=== PATIENT | male | born 1960 | race Caucasian/White ===

== ENCOUNTER 2018-06-08 01:01 | Outpatient (CLI) | payer OTHER, SELFPAY ==
[2018-06-08 12:04] LABS: HCT 41.9 % (40.0-50.0); HGB 14.3 g/dL (13.5-17.5); Mean Corp. HGB Concentration 34.1 g/dL (32.0-36.0); Mean Corpuscular Hemoglobin 30.9 pg (27.0-33.0); Mean Corpuscular Volume 90.5 fL (80-95); Mean Platelet Volume 9.9 fL (8.0-11.0); Platelet Count 242 x1000/uL (130-400); RBC 4.63 m/cumm (4.50-6.00); RBC Distribution Width 12.5 % (11.8-14.1); White Blood Cell Count 5.63 k/cumm (4.4-10.8)
[2018-06-08 12:25] LABS: Hemoglobin A1C 7.9 % (4.5-6.2)
[2018-06-08 12:29] LABS: ALT 45 U/L (12-78); AST 25 U/L (15-37); Albumin 4.2 g/dL (3.4-5.0); Alkaline Phosphatase 95 U/L (46-116); Anion Gap 11.3 mmol/L (3-11); BUN 14 mg/dL (7-18); Bilirubin, Total 0.3 mg/dL (0.2-1.0); CO2 26.7 mmol/L (21.0-32.0); Calcium 9.5 mg/dL (8.5-10.1); Chloride 100 mmol/L (98-107); Cholesterol 135 mg/dL (50-200); Glucose 253 mg/dL (70-100); HDL Cholesterol 39 mg/dL (40-60); LDL CHOLESTEROL 56 mg/dL (<100); Sodium 138 mmol/L (136-145); Total Protein 7.8 g/dL (6.4-8.2); Triglyceride 352 mg/dL (30-150)
[2018-06-09 10:34] LABS: PSA, Screening 0.8 ng/ml (0-3.5)
== END 2018-06-08 01:21 ==
PROVIDERS: PCP Family Medicine; Visit Provider Family Medicine
DX: E11.9 Type 2 diabetes mellitus without complications (principal); Z12.5 Encounter for screening for malignant neoplasm of prostate
CPT/HCPCS: 36415; 80053; 80061; 83721; 84153; 85027; 83036

== ENCOUNTER 2020-07-11 09:05 | Outpatient (REF) | payer BC, SELFPAY ==
[2020-07-11 13:23] LABS: CREATININE 0.8 mg/dL (0.70-1.30); Calculated LDL 57 mg/dL (<100); Cholesterol 110 mg/dL (<200); HDL Cholesterol 32 mg/dL (40-60); Potassium 4.7 mmol/L (3.5-5.1); Triglyceride 109 mg/dL (<150)
== END 2020-07-11 09:06 | disposition home or self-care (01) ==
LOC: LBN 09:05
PROVIDERS: PCP Family Medicine; Visit Provider Family Medicine
DX: I10 Essential (primary) hypertension (principal); E78.5 Hyperlipidemia, unspecified
CPT/HCPCS: 80061; 82565; 84132

== ENCOUNTER 2020-10-01 16:54 | Outpatient (REF) | payer BC, SELFPAY ==
[2020-10-01 17:52] LABS: Hemoglobin A1C 6.6 % (<5.7)
== END 2020-10-01 16:55 | disposition home or self-care (01) ==
LOC: LBN 16:54
PROVIDERS: PCP Nurse Practitioner Family; Visit Provider Nurse Practitioner Family
DX: E11.9 Type 2 diabetes mellitus without complications (principal); R35.1 Nocturia
CPT/HCPCS: 83036; 84154

== ENCOUNTER 2021-04-07 09:58 | Outpatient (CLI) | payer BC, SELFPAY ==
--- NOTE | 2021-04-07 11:25 | DI.RAD_ITS ---
Exam(s) XR SHOULDER LT COMPLETE 2+V EXAM: XR SHOULDER LT COMPLETE 2+V CLINICAL HISTORY: continued shoulder pain M25.512 PAIN LEFT SHOULDER. TECHNIQUE: 2D digital imaging was performed of the left shoulder. Five images were obtained. AP, G rashey, Y-view and axillary views were obtained. COMPARISON: No exams were available for comparison FINDINGS: BONES: No acute fracture is present. No bony destructive lesion is seen. There are calcifications adj acent to the greater tuberosity consistent with calcific tendinitis. JOINTS: No dislocation present. Mild degenerative changes are seen at the acromioclavicular joint. SOFT TISSUE: Normal. IMPRESSION: Degenerative changes in the left shoulder. DATA REPOSITORY: RADIATION DOSE DELIVERED:
== END 2021-04-07 10:18 ==
LOC: DI 10:01
PROVIDERS: PCP Nurse Practitioner Family; Visit Provider Nurse Practitioner Family
DX: M25.512 Pain in left shoulder (principal); M19.012 Primary osteoarthritis, left shoulder
CPT/HCPCS: 73030

== ENCOUNTER 2021-05-26 01:18 | Outpatient (CLI) | payer BC, SELFPAY ==
--- NOTE | 2021-05-26 08:08 | DI.MRI_ITS ---
Exam(s) MR UPPER JOINT LT WO EXAM: MR UPPER JOINT LT WO CLINICAL HISTORY: pain,weakness,TRAUMATIC TEAR LT ROTATOR CUFF,S46.012A. TECHNIQUE: Multiplanar multisequence MRI was performed. COMPARISON: No exams were available for comparison FINDINGS: The examination is limited due to patient motion artifact. BONES: There is no fracture or contusion pattern. JOINTS: Mild degenerative changes are seen at the acromioclavicular joint. The glenohumeral joint is normal. TENDONS: Supraspinatus: There is a focus of hyperintense signal seen in the supraspinatus tendon at its insert ion site consistent with a partial tear. Infraspinatus: Unremarkable. Subscapularis: There is hyperintense signal and thickening of the subscapularis tendon at its inserti on consistent with a partial tear. Teres Minor: Unremarkable. Biceps and Dousman: Tendinosis of the biceps tendon is noted. MUSCLES: Unremarkable. GLENOID LABRUM: There is hyperintense signal seen in the superior labrum suspicious for tear and/or d egeneration. SOFT TISSUES: Unremarkable. LIGAMENTS: Unremarkable. OTHER: Subacromial and subdeltoid bursae are unremarkable. IMPRESSION: 1. Examination limited by patient motion artifact. 2. Partial tears involving the subscapularis and supraspinatus tendons. 3. Tendinosis of the biceps tendon. 4. Hyperintense signal in superior labrum suspicious for tear. Degeneration cannot be excluded. DATA REPOSITORY:
== END 2021-05-26 01:38 ==
LOC: DI 01:18
PROVIDERS: PCP Nurse Practitioner Family; Visit Provider Student in an Organized Health Care Education/Training Program
DX: M25.512 Pain in left shoulder (principal); S46.012A Strain of muscle(s) and tendon(s) of the rotator cuff of left shoulder, initial encounter; M19.012 Primary osteoarthritis, left shoulder; M75.22 Bicipital tendinitis, left shoulder
CPT/HCPCS: 73221

== ENCOUNTER 2021-08-10 13:11 | Emergency (ER) | payer BC, SELFPAY ==
[2021-08-10 13:29] VITALS: BP 155/86; PULSE 91; RESP 16; TEMP 37.6; O2SAT 96
--- NOTE | 2021-08-10 14:22 | ED.GENADUL_ITS ---
Discharge Plan Disposition Patient Disposition: HOME Condition: Stable Discharge Details Clinical Impression: Splinter in skin Primary Care Provider: Jemal Hannah ED Provider: Pal Nelson Home Meds and New Rx's Prescriptions: Continued (DME) lancets [Accu-Chek Softclix Lancets] Misc See Rx Instructions .Route Qty: 200 0RF Rx Instructions: Daily (DME) blood-glucose meter [Contour Next Meter] Misc See Rx Instructions .Route Qty: 1 0RF Rx Instructions: Daily (DME) Contour Next Test Strips Strip See Rx Instructions .Route Qty: 100 3RF Rx Instructions: Daily trazodone 50 mg tablet 50 mg PO QHS PRN (Reason: sleep) Qty: 90 3RF rosuvastatin 20 mg tablet 20 mg PO DAILY Qty: 90 3RF diclofenac sodium 75 mg tablet,delayed release (DR/EC) 75 mg PO BID Qty: 60 3RF Trulicity 3 mg/0.5 mL pen injector 3 mg subcut QWEEK Qty: 2 3RF Discharge Instructions Instructions: Soft Tissue Foreign Body (ED) Additional Instructions: Unfortunately I was unable to remove the soft tissue foreign body. Warm soaks and/or compresses every 2 hours for 20 minutes. Ljsm-adj-[id number] wicking salves may be beneficial as well. Please watch for new or worsening symptoms and return to the ER for any concerns. Lastly, I have given you the name and number of our local surgical team if you decide you would like to be more aggressive and have them attempt to remove this. Referrals: Liset Gresham MD [ [facility] STAFF PHYSICIAN] - Discharge Data Discharge Date/Time-TO BE ENTERED AT DEPARTURE: 08/10/21 15:21 Medical Decision Making 61-year-old male, tetanus status up-to-date, report splinter, wooden foreign body in his right buttocks. He initially thought the wound was pressure-treated but on second thought he believes it looked aged and does not think it was pressure-treated. His was able to remove some of the splinter but there is concerned that the splinter broke and there is still a subcutaneous foreign body. Given the foreign body is wooden, while pivoting on a picnic bench, x-ray likely of little value. Discussed options. Conservative measures of warm compresses, soaks, wicking salves, etc. versus more aggressive treatment, exploratory foreign body removal. I did make it very clear that I would not be exploring extremely aggressively or deeply here in the ER and that this may require outpatient surgical follow-up. They would like to move forward with potential foreign body retrieval. Please see procedural note. 1/2 cm laceration was made just superior of the puncture wound, using splinter forceps I attempted to retrieve the potential foreign body but was unsuccessful. Patient tolerated this well. Discussed placing a single suture in the incision versus leaving it open for potential drainage and eventual extraction of foreign body. Patient would prefer to leave the laceration as is, declines sutures. Discussed conservative measures, warm compresses and soaks, viky-gbc-kaygbif wicking salves, and signs of infection. Encouraged to return to the ER for new or worsening symptoms. Given the surgical suite contact information if they would like to proceed with surgical follow-up and extraction of foreign body. Patient and family have no additional questions or concerns and are comfortable with this plan. This documentation was generated using Inform Direct dictation system, please disregard any oddities of phrase or misspellings. Medical Records Medical records reviewed: Yes I reviewed the patient's medical records. HPI General Mode of arrival: ambulatory . Date/Time Provider Initiated Documentation: 08/10/21 13:49 . Limitations to Documentation: no limitations . Information obtained by: patient . History of Present Illness 61 year old M presents to the emergency department with the chief complaint of splinter in buttocks, described as moderate, with intensity rated at 4. Quality is described as aching, and is localized to the buttocks. Patient reports no radiation. Patient started experiencing this hour(s) (1) and it has been constant. improves with No relieving factors improve symptom(s), No exacerbating factors reported . Patient notes no other symptoms.. Patient did receive the following treatments prior to arrival, none Related Data Home Medications Medication Instructions Recorded Confirmed rosuvastatin 20 mg tablet 20 mg PO DAILY #90 tab-cap 01/09/21 08/10/21 blood sugar diagnostic (Contour #100 ea 06/03/21 07/22/21 Next Test Strips) blood-glucose meter (Contour Next #1 ea 06/03/21 07/22/21 Meter) lancets (Accu-Chek Softclix #200 ea 06/03/21 07/22/21 Lancets) diclofenac sodium 75 mg 75 mg PO BID #60 tab-cap 07/08/21 08/10/21 tablet,delayed release trazodone 50 mg tablet 50 mg PO QHS PRN #90 tab 07/22/21 08/10/21 dulaglutide 3 mg/0.5 mL 3 mg (0.5 mL) SUBCUT QWEEK #2 ml 07/27/21 08/10/21 subcutaneous pen injector (Trulicity) Previous Rx's Medication Instructions Recorded rosuvastatin 20 mg tablet 20 mg PO DAILY #90 tab-cap 01/09/21 blood sugar diagnostic (Contour #100 ea 06/03/21 Next Test Strips) blood-glucose meter (Contour Next #1 ea 06/03/21 Meter) lancets (Accu-Chek Softclix #200 ea 06/03/21 Lancets) diclofenac sodium 75 mg 75 mg PO BID #60 tab-cap 07/08/21 tablet,delayed release trazodone 50 mg tablet 50 mg PO QHS PRN #90 tab 07/22/21 dulaglutide 3 mg/0.5 mL 3 mg (0.5 mL) SUBCUT QWEEK #2 ml 07/27/21 subcutaneous pen injector (Trulicity) Allergies Allergy/AdvReac Type Severity Reaction Status Date / Time Penicillins Allergy Intermediate Verified 08/10/21 13:33 General Stated Complaint: Laceration KARRI: 4 Review of Systems Constitutional Constitutional: Denies fever(s) and Denies weakness Musculoskeletal Musculoskeletal: Denies numbness and Denies tingling Integumentary/Breasts Skin/Breast: Denies erythema and Denies rash Neurologic Neurologic: Denies numbness, Denies tingling and Denies weakness PFSH All Active Problems Splinter in skin (Acute) Bursitis of left shoulder (Acute) Tendinitis of long head of biceps brachii of left shoulder (Acute) SLAP lesion of left shoulder (Acute) Traumatic tear of left rotator cuff (Acute ~09/2020) Insomnia (Acute) Anxiety (Chronic) Nocturia (Acute) Low back pain (Acute) DM type 2 (diabetes mellitus, type 2) (Chronic) Hyperlipidemia (Acute) Tubular adenoma of colon (Acute) 2014 Surgical History Colonoscopy - MAC 2014 Social History Smoking/Tobacco Use Status: Never Second Hand Exposure: No Smoking risk assessment performed?: Yes Alcohol Intake: former Drug use: Never Caregiver/Support person: No Household members: none Housing: house Communication Needs: None Do you need help understanding health information?: Never Pets and animals: No Sexually active: Yes Do you think of yourself as: straight/heterosexual Current gender identity: male What is your relationship status?: How often do you talk on the phone with friends or family?: three or more times per week How often do you get together with friends or relatives?: three or more times per week How often do you attend tenriism or anabaptist services?: 1-3 times per year Do you belong to any clubs or organized social groups?: no Panel score (0-1 are the most socially isolated patients): 1 What type of physical activity do you participate in: walking Duration: 45-60 minutes/day Frequency: daily Trinity/Yarsani: Jew Special trinity needs: No Seatbelt use: sometimes Helmet use: Yes Helmet use: always Drive intox or ride w/intox 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 Puncture wound. No active bleeding or obvious foreign body. No surrounding erythema or warmth. The puncture wound appears to go in a superior tract fashion. When I rolled my fingers over the subcutaneous tissue, I do question if I can feel a foreign body half a centimeter superior of the actual puncture wound. Skin General skin exam: no rashes or lesions noted Neuro General: patient alert, patient awake, moves all extremities and no focal motor deficits Sensory Exam: no sensory deficits noted Psych Appearance: grossly normal Mental Status: mental status grossly normal Course Vital Signs Vital signs: Vital Signs Temperature 37.6 C H 08/10/21 13:29 Pulse 91 H 08/10/21 13:29 Respiratory Rate 16 08/10/21 13:29 Blood Pressure 155/86 H 08/10/21 13:29 Pulse Oximetry 96 08/10/21 13:29 Temperature 37.6 C H 08/10/21 13:29 Temperature Source Temporal Artery Scan 08/10/21 13:29 Pulse 91 H 08/10/21 13:29 Respiratory Rate 16 08/10/21 13:29 Respiratory Effort 08/10/21 13:29 Blood Pressure 155/86 H 08/10/21 13:29 Blood Pressure Position Sitting 08/10/21 13:29 Pulse Oximetry 96 08/10/21 13:29 Oxygen Delivery Method Room Air 08/10/21 13:29 Oxygen Flow Rate 0 08/10/21 13:29 Pain Level 3 08/10/21 13:29 Procedures Foreign Body Removal Time Out Performed: yes Site: left and other (Buttocks) Description of foreign body: other (Wooden splinter) Sedation/Analgesia: other (3 cc, local 1% Lidoderm with epi) Technique: manual removal, removal with forceps and incision made to facilitate removal Confirmed by:: other (Unfortunately unsuccessful) Complications: none Post-procedure exam: awake, alert Neurovascular: other (No complications)
== END 2021-08-10 15:21 | disposition home or self-care (01) ==
PROVIDERS: Emergency Provider Physician Assistant; PCP Nurse Practitioner Family
DX: S30.850A Superficial foreign body of lower back and pelvis, initial encounter (principal); W45.8XXA Other foreign body or object entering through skin, initial encounter
CPT/HCPCS: 10120

== ENCOUNTER 2022-05-06 04:06 | Outpatient (CLI) | payer BC, SELFPAY ==
[2022-05-06 12:45] LABS: ALT 28 U/L (16-63); AST 14 U/L (15-37); Albumin 4.2 g/dL (3.4-5.0); Alkaline Phosphatase 86 U/L (46-116); Anion Gap 8.6 mmol/L (3-11); BUN 13 mg/dL (7-18); Bilirubin, Total 0.3 mg/dL (0.2-1.0); CO2 27.4 mmol/L (21.0-32.0); Calcium 9.3 mg/dL (8.5-10.1); Calculated LDL 95 mg/dL (<100); Chloride 101 mmol/L (98-107); Cholesterol 170 mg/dL (<200); Estimated GFR 86.16 (mL/min/1.73m2); Glucose 174 mg/dL (74-106); HDL Cholesterol 44 mg/dL (40-60); Potassium 4.2 mmol/L (3.5-5.1); Sodium 137 mmol/L (136-145); Triglyceride 159 mg/dL (<150)
[2022-05-06 14:46] LABS: Hemoglobin A1C 7.7 % (<5.7)
== END 2022-05-06 04:07 | disposition home or self-care (01) ==
LOC: LOS 04:06
PROVIDERS: PCP Nurse Practitioner Family; Visit Provider Nurse Practitioner Family
DX: E11.9 Type 2 diabetes mellitus without complications (principal); E78.2 Mixed hyperlipidemia
CPT/HCPCS: 36415; 80053; 80061; 83036

== ENCOUNTER 2023-04-01 02:48 | Outpatient (CLI) | payer BC, SELFPAY ==
[2023-04-04 11:44] LABS: Lyme Ab w Rflx to Lyme Confirm Negative (Negative)
[2023-04-05 16:30] LABS: Anaplasma phagocytophilum Negative (Negative); B. miyamotoi PCR Negative (Negative); Babesia divergens/MO-1 Negative (Negative); Babesia duncani Negative (Negative); Babesia microti Negative (Negative); Ehrlichia chaffeensis Negative (Negative); Ehrlichia ewingii/canis Negative (Negative); Ehrlichia muris eauclairensis Negative (Negative)
== END 2023-04-01 02:49 | disposition home or self-care (01) ==
LOC: LBO 02:50
PROVIDERS: PCP Nurse Practitioner Family; Visit Provider Nurse Practitioner Family
DX: M25.50 Pain in unspecified joint (principal)
CPT/HCPCS: 36415; 87798; 86618

== ENCOUNTER 2023-08-28 17:22 | Emergency (ER) | payer BC, SELFPAY ==
--- NOTE | 2023-08-28 17:15 | DI.RAD_ITS ---
Exam(s) XR RIBS LT PA CHEST 3V EXAM: XR RIBS LT PA CHEST 3V CLINICAL HISTORY: fall thurs L rib pain TECHNIQUE: 2D digital imaging was performed. Seven images are obtained. COMPARISON: CR CHEST 2 VIEWS PA,LAT from 02/17/2011 FINDINGS: MEDIASTINUM: Normal. HEART: Normal. PULMONARY VASCULATURE: Normal. LUNGS: Clear. PLEURAL SPACE: No pleural effusion or pneumothorax. BONE:Within normal limits for the patient's age. LEFT RIBS: Normal. OTHER FINDINGS:Normal. IMPRESSION: 1. No acute pulmonary findings. 2. Unremarkable left ribs. DATA REPOSITORY: RADIATION DOSE DELIVERED:
[2023-08-28 17:24] VITALS: BP 163/70; PULSE 83; RESP 14; TEMP 36.4; O2SAT 97
--- NOTE | 2023-08-28 17:28 | ED.GENADUL_ITS ---
Discharge Plan Disposition Patient Disposition: Home Condition: Stable Discharge Details Clinical Impression: Rib contusion Primary Care Provider: Jemal Hannah ED Provider: Filemon Sebastian Home Meds and New Rx's Prescriptions: Continued (DME) lancets [Accu-Chek Softclix Lancets] Misc See Rx Instructions .Route Qty: 200 0RF Rx Instructions: Daily (DME) blood-glucose meter [Contour Next Meter] Misc See Rx Instructions .Route Qty: 1 0RF Rx Instructions: Daily (DME) Contour Next Test Strips Strip See Rx Instructions .Route Qty: 100 3RF Rx Instructions: Daily rosuvastatin 5 mg tablet 5 mg PO DAILY Qty: 90 3RF metformin 1,000 mg tablet 1,000 mg PO BID Qty: 90 3RF omeprazole 20 mg capsule,delayed release(DR/EC) 20 mg PO DAILY Qty: 90 3RF doxycycline hyclate 100 mg capsule 100 mg PO BID Qty: 14 0RF dulaglutide 3 mg/0.5 mL pen injector 3 mg subcut QWEEK Qty: 2 3RF Discharge Instructions Instructions: Rib Contusion (ED) Additional Instructions: You were seen in the emergency department for your fall on . There is no acute rib fracture or lung puncture seen on your chest x-ray, you likely have significant rib contusions which can be a painful condition. You may choose to wrap wide Herrera wrap around your torso each morning to provide some support or hold a pillow against your area of pain to stabilize any movement with your ribs. Please use therapeutic dosing of Tylenol (acetamenophen) & Advil (ibuprofen) in an alternating fashion as follows: Take 1000mg of Tylenol every 6 hours without missing doses- that is 4 times per day. Shelter in between the Tylenol dosings, take 400-600mg of Advil also on a 6 hour schedule, that is also 4 times per day. The daily maximum dosing of Tylenol is 4000mg, and the daily maximum dosing of Advil is 2400mg. This is safe to do for weeks. Please note that some common cold medications & prescription pain medications may contain acetamenophen and you need to read OTC drug labels and factor that in to maximum daily dosings. I have sent you home with a small to go pack of oxycodone. Please monitor your respiratory status closely, return for any developing cough especially with fever. Referrals: Jemal Hannah, [facility] [Primary Care Provider] - Discharge Data Discharge Date/Time-TO BE ENTERED AT DEPARTURE: 08/28/23 20:29 HPI General Date/Time Provider Initiated Documentation: 08/28/23 17:26 . HPI Narrative: 63 year-old male presents to ED today by POV/ambulating with his with a chief complaint of L mid-posterior rib pain with onset after a fall in bedroom- landing on powerstrip on his L ribs. Quality described as significant pain with moving- not improving for days, no radiation to cough, fever, hemoptysis, pain with deep inspiration, abdominal pain, hematuria. Severity is described as 8/10. Palliating factors include Tylenol and ibuprofen with minimal relief. Provoking factors include nothing specific. Patient not anticoagulated. Related Data Home Medications Medication Instructions Recorded Confirmed blood sugar diagnostic (Contour #100 ea 06/03/21 08/19/23 Next Test Strips) blood-glucose meter (Contour Next #1 ea 06/03/21 08/19/23 Meter) lancets (Accu-Chek Softclix #200 ea 06/03/21 08/19/23 Lancets) rosuvastatin 5 mg tablet 5 mg PO DAILY #90 tab-caps 05/10/22 08/19/23 metformin 1,000 mg tablet 1,000 mg PO BID #90 tabs 03/18/23 08/19/23 omeprazole 20 mg capsule,delayed 20 mg PO DAILY #90 caps 03/18/23 08/19/23 release dulaglutide 3 mg/0.5 mL 3 mg (0.5 mL) subcut QWEEK #2 mL 07/18/23 08/19/23 subcutaneous pen injector doxycycline hyclate 100 mg capsule 100 mg PO BID #14 caps 08/19/23 08/19/23 Previous Rx's Medication Instructions Recorded blood sugar diagnostic (Contour #100 ea 06/03/21 Next Test Strips) blood-glucose meter (Contour Next #1 ea 06/03/21 Meter) lancets (Accu-Chek Softclix #200 ea 06/03/21 Lancets) rosuvastatin 5 mg tablet 5 mg PO DAILY #90 tab-caps 05/10/22 metformin 1,000 mg tablet 1,000 mg PO BID #90 tabs 03/18/23 omeprazole 20 mg capsule,delayed 20 mg PO DAILY #90 caps 03/18/23 release dulaglutide 3 mg/0.5 mL 3 mg (0.5 mL) subcut QWEEK #2 mL 07/18/23 subcutaneous pen injector doxycycline hyclate 100 mg capsule 100 mg PO BID #14 caps 08/19/23 Allergies Allergy/AdvReac Type Severity Reaction Status Date / Time Penicillins Allergy Intermediate Other (See Verified 08/19/23 10:15 Comment) General Stated Complaint: Chest/Rib KARRI: 4 Review of Systems All systems reviewed & are unremarkable except as noted in HPI and below Exam Narrative Exam Narrative: GENERAL APPEARANCE: Well-nourished, non-toxic, awake and alert, atraumatic, no acute distress. SKIN: Warm, pink, dry, intact, without rashes/lesions/ulcerations. HEAD: Normocephalic, atraumatic, normal hair distribution for gender/age. EYES: Normal conjunctiva, no exudates on lids/lashes. ENT: Nares patent, no circumoral cyanosis, no facial swelling NECK: Supple, trachea midline, painless cervical ROM. LUNGS/CHEST: Lungs CTA bilaterally- no rhonchi/rales/wheezes diffusely, no focally absent or diminished lung sounds, non-labored respirations, normal A/P diameter, symmetrical expansion, no chest wall deformity, TTP L posterior lower ribs without crepitus/flail segment/paradoxical motion HEART (CV/PV): Regular rate and rhythm without murmur, no peripheral edema, no JVD. ABDOMEN: Soft, non-distended, no guarding, no tenderness LUQ. MSK: Normal ROM, no swelling/deformity to bilateral UEs or LEs, moving all extremities without weakness, no cyanosis, spine midline without tenderness, normal curvature. NEURO: Mental Status AAOx4 - alert to person, place, time, events No facial droop, no forehead involvement. Motor: No focal weakness - strength 5/5 in bilateral UEs and LEs, proximal and distal, symmetric. Sensory: sensation intact to light touch globally. Gait normal: patient ambulated without ataxia into ED room. PSYCH: euthymic, cooperative, pleasant, appropriate speech Course Vital Signs Vital signs: Vital Signs Temperature 36.4 C 08/28/23 17:24 Pulse 83 08/28/23 17:24 Respiratory Rate 14 08/28/23 17:24 Blood Pressure 163/70 H 08/28/23 17:24 Pulse Oximetry 97 08/28/23 17:24 Temperature 36.4 C 08/28/23 17:24 Temperature Source Temporal Artery Scan 08/28/23 17:24 Pulse 83 08/28/23 17:24 Respiratory Rate 14 08/28/23 17:24 Blood Pressure 163/70 H 08/28/23 17:24 Blood Pressure Position Sitting 08/28/23 17:24 Pulse Oximetry 97 08/28/23 17:24 Oxygen Delivery Method Room Air 08/28/23 17:24 Oxygen Flow Rate 0 08/28/23 17:24 Pain Level 2 08/28/23 17:24 Medical Decision Making This dictation utilizes [id number] dictation software and may contain unedited grammatical errors. 63 y/o M presents to ED today with a chief complaint of L posterior rib pain after a fall from bed on PM- states no improvement for days, feels like he may have broken ribs- no developing cough or fever, no pain with deep inspiration or hemoptysis, no hematuria. Patients' medical history: Polymyalgia, T2DM, hyperlipidemia. Family and social history: noncontributory. Pertinent exam findings / vital signs include LUNGS/CHEST: Lungs CTA bila terally- no rhonchi/rales/wheezes diffusely, no focally absent or diminished lung sounds, non-labored respirations, normal A/P diameter, symmetrical expansion, no chest wall deformity, TTP L posterior lower ribs without crepitus/flail segment/paradoxical motion. Differential / pathologies of concern include rib fracture, rib contusion, renal contusion, pneumothorax. Diagnostic studies of: -XR L Ribs w PA Chest - no fractures, no PTX. -UA no hematuria Interventions of: -herrera wrap for rib belt, to-go oxycodone. ED Course/Assessment/Plan: 63-year-old male had a fall from bed on night striking his left posterior ribs on power strip, having significant pain for the past few days. No developing cough or fever, no pneumonia on chest x-ray, no fracture seen on rib series and no pneumothorax, UA shows no hematuria, he has no crepitus on exam and lungs are clear in all guevara. Counseled on rib contusion provided Herrera wrap for rib belt, counseled on therapeutic dosing of Tylenol and ibuprofen and provided to go pack of oxycodone, strict return criteria for developing cough/fever/shortness of breath, strict return criteria for blood in the urine. Findings not consistent with abdominal pathology, pneumothorax, pneumonia, rib fracture. Disposition of rib contusion. Patient verbalized understanding of the plan and return to ED criteria and engaged in shared decision making. Medical Records Medical records reviewed: Yes I reviewed the patient's medical records. Imaging Data Radiologic Study: Attestation: I personally reviewed and interpreted this imaging study as follows: Imaging: X-Ray Radiologist's impression: Exam: XR Left Ribs with PA Chest Exam date and time: 08/28/2023 6:11 PM Age: 63 years old Clinical indication: Injury or trauma; Rib area, left side; Blunt trauma; Injury details: Fall thurs L rib pain TECHNIQUE: Imaging protocol: Radiologic exam of the left ribs with PA chest. Views: 3 views COMPARISON: MR UPPER JOINT LT WO 05/26/2021 2:55 PM FINDINGS: Lungs: Unremarkable. No consolidation. Pleural spaces: Unremarkable. No pleural effusion. No pneumothorax. Heart/Mediastinum: Unremarkable. No cardiomegaly. Bones/joints: Moderate degenerative changes of the spine and shoulders. Mild thoracolumbar scoliosis. No acute fracture. IMPRESSION: No acute fracture Dictated and Authenticated by: Stan Trevino MD. Ordering:SUE Colbert MD Quality:SDOH Health Related Social Needs: No Data to Display PFSH All Active Problems (Updated 08/28/23 @ 20:07 by CARLOS ENRIQUE Cordoba) Rib contusion (Acute) Polymyalgia (Acute) GERD (gastroesophageal reflux disease) (Chronic) Joint pain (Acute) Acquired trigger finger of both middle fingers (Acute) Dupuytren's contracture (Acute) Trigger finger (Acute) Bursitis of left shoulder (Acute) Tendinitis of long head of biceps brachii of left shoulder (Acute) SLAP lesion of left shoulder (Acute) Traumatic tear of left rotator cuff (Acute ~09/2020) Insomnia (Acute) Anxiety (Chronic) Nocturia (Acute) Low back pain (Acute) DM type 2 (diabetes mellitus, type 2) (Chronic) Hyperlipidemia (Acute) Tubular adenoma of colon (Acute) 2014 Surgical History Colonoscopy - MAC 2014 Social History Smoking/Tobacco Use Status: Never Second Hand Exposure: No Smoking risk assessment performed?: Yes Alcohol Intake: former Drug use: Never Caregiver/Support person: No Household members: none Housing: house Communication Needs: None Do you need help understanding health information?: Never Pets and animals: No Sexually active: Yes Do you think of yourself as: straight/heterosexual Current gender identity: male What is your relationship status?: How often do you talk on the phone with friends or family?: three or more times per week How often do you get together with friends or relatives?: three or more times per week How often do you attend yazidi or restoration services?: 1-3 times per year Do you belong to any clubs or organized social groups?: no Panel score (0-1 are the most socially isolated patients): 1 What type of physical activity do you participate in: walking Duration: 45-60 minutes/day Frequency: daily Trinity/Cheondoism: Confucianism Special trinity needs: No Seatbelt use: sometimes Helmet use: Yes Helmet use: always Drive intox or ride w/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
[2023-08-28 18:58] LABS: Bilirubin Negative (Negative); Blood Negative (Negative); Clarity Clear (Clear); Glucose 100 mg/dL (Negative); Ketones Negative (Negative); Leukocyte Esterase Negative (Negative); Nitrite Negative (Negative); Urobilinogen 0.2 mg/dL (Up to 0.2)
--- NOTE | 2023-08-28 20:04 | DI.VRAD_ITS ---
PROCEDURE INFORMATION: Exam: XR Left Ribs with PA Chest Exam date and time: 08/28/2023 6:11 PM Age: 63 years old Clinical indication: Injury or trauma; Rib area, left side; Blunt trauma; Injury details: Fall thurs L rib pain TECHNIQUE: Imaging protocol: Radiologic exam of the left ribs with PA chest. Views: 3 views COMPARISON: MR UPPER JOINT LT WO 05/26/2021 2:55 PM FINDINGS: Lungs: Unremarkable. No consolidation. Pleural spaces: Unremarkable. No pleural effusion. No pneumothorax. Heart/Mediastinum: Unremarkable. No cardiomegaly. Bones/joints: Moderate degenerative changes of the spine and shoulders. Mild thoracolumbar scoliosis. No acute fracture. IMPRESSION: No acute fracture Dictated and Authenticated by: Stan Trevino MD. Ordering:SUE Colbert MD
[2023-08-28] MEDS: Acetaminophen 500 MG TAB 1000 MG PO (20:28)
[2023-08-28] MEDS: Ketorolac 10 MG TAB PO (20:28)
[2023-08-28] MEDS: oxyCODONE 5 MG TAB PO (20:29)
== END 2023-08-28 20:29 | disposition home or self-care (01) ==
PROVIDERS: Emergency Provider Physician Assistant; PCP Nurse Practitioner Family
DX: S20.212A Contusion of left front wall of thorax, initial encounter (principal); W06.XXXA Fall from bed, initial encounter
CPT/HCPCS: 71101; 99283; 81003

== ENCOUNTER 2023-09-05 12:55 | Emergency (ER) | payer BC, SELFPAY ==
--- NOTE | 2023-09-05 13:00 | DI.CT_ITS ---
Exam(s) CT ABDOMEN PELVIS W EXAM: CT ABDOMEN PELVIS W CLINICAL HISTORY: luq pain. TECHNIQUE: Imaging Protocol: Axial computed tomography images with coronal and sagittal reformatted images were created and reviewed CONTRAST MATERIAL: Intravenous: Omnipaque-350 100cc Oral: None COMPARISON: CR,XR XR RIBS LT PA CHEST 3V from 08/28/2023 FINDINGS: VISUALIZED LUNG BASES: No nodules nor pleural effusions evident. ABDOMEN: There is no ascites. LIVER: There are no focal hepatic lesions evident. No dilated intrahepatic ducts. GALLBLADDER/BILIARY: No obvious gallbladder pathology. CBD is not dilated. PANCREAS: Gas density projected over the pancreatic head is probably duodenal diverticulum at this le joshua. SPLEEN: Spleen is not enlarged. No obvious intrasplenic lesions. Splenic and portal veins are paten t. ADRENALS: There are no significant adrenal masses. KIDNEYS:No cysts evident. No solid renal masses. No calculi nor hydronephrosis.. ABDOMINAL AORTA: Abdominal aorta is not enlarged. LYMPH NODES:There is no retroperitoneal nor paraaortic adenopathy. ABDOMINAL WALL: No evidence of significant anterior abdominal wall nor inguinal hernia. GI: There is abundant fecal material noted throughout the colon. No evidence of diverticulosis. PELVIS: GI: No evidence of appendicitis.No evidence of sigmoid diverticulitis. LYMPH NODES: There is no intrapelvic nor inguinal adenopathy. REPRODUCTIVE: Mildly enlarged prostate. Seminal vesicles unremarkable. URINARY BLADDER: No calculi nor obvious masses evident OSSEOUS: No fractures and no significant osseous lesions. Moderate-advanced disc space narrowing at L4-5 level. No listhesis. Mild loss of height of T12 vert ebral body which does not appear acute. IMPRESSION: 1. There is abundant fecal material throughout the colon. Correlation with any clinical signs of con stipation. No evidence of obvious colitis nor significant diverticular disease in the colon. Append ix appears unremarkable. 2. Normal spleen size in this patient apparently is left upper quadrant pain. No left lung base find ings. Discussed by phone with ER provider. RADIATION DOSE DELIVERED: 1,080.81mGy.cm Total DLP DATA REPOSITORY: All CT scans at this facility are submitted to the National Radiology Data Registry (NRDR) Dose Index Registry (DIR) with the [employer] ([employer]). RADIATION OPTIMIZATION: All CT scans at this facility use at least one of these dose optimization te chniques: automated exposure control; mA and/or kV adjustment per patient size (includes targeted exa ms where dose is matched to clinical indication); or iterative reconstruction.
[2023-09-05 13:03] VITALS: BP 202/78; PULSE 79; RESP 15; TEMP 37.1; O2SAT 96
--- NOTE | 2023-09-05 13:21 | ED.GENADUL_ITS ---
Discharge Plan Disposition Patient Disposition: Home Condition: Stable Discharge Details Clinical Impression: Abdominal pain Primary Care Provider: Jmeal Hannah ED Provider: Ravi Hernández Home Meds and New Rx's Prescriptions: Continued (DME) lancets [Accu-Chek Softclix Lancets] Misc See Rx Instructions .Route Qty: 200 0RF Rx Instructions: Daily (DME) blood-glucose meter [Contour Next Meter] Misc See Rx Instructions .Route Qty: 1 0RF Rx Instructions: Daily (DME) Contour Next Test Strips Strip See Rx Instructions .Route Qty: 100 3RF Rx Instructions: Daily rosuvastatin 5 mg tablet 5 mg PO DAILY Qty: 90 3RF metformin 1,000 mg tablet 1,000 mg PO BID Qty: 90 3RF omeprazole 20 mg capsule,delayed release(DR/EC) 20 mg PO DAILY Qty: 90 3RF dulaglutide 3 mg/0.5 mL pen injector 3 mg subcut QWEEK Qty: 2 3RF Discharge Instructions Additional Instructions: Your blood work and CAT scan did not show any concerning findings. Follow-up with your primary care provider within 1 week especially if not improving If you feel more ill or have new symptoms such as persistent vomiting or high fevers return to the emergency department for reevaluation HPI General Mode of arrival: ambulatory . Date/Time Provider Initiated Documentation: 09/05/23 12:56 . Limitations to Documentation: no limitations . Information obtained by: patient . History of Present Illness 63 year old M presents to the emergency department with the chief complaint of Left upper abdominal pain, described as moderate, Quality is described as sharp, and is localized to the abdomen. Patient reports no radiation. Patient started experiencing this hour(s) (2) and it has been constant. No relieving factors improve symptom(s), No exacerbating factors reported . Patient notes no other symptoms.. Patient did receive the following treatments prior to arrival, none Related Data Home Medications Medication Instructions Recorded Confirmed blood sugar diagnostic (Contour #100 ea 06/03/21 09/05/23 Next Test Strips) blood-glucose meter (Contour Next #1 ea 06/03/21 09/05/23 Meter) lancets (Accu-Chek Softclix #200 ea 06/03/21 09/05/23 Lancets) rosuvastatin 5 mg tablet 5 mg PO DAILY #90 tab-caps 05/10/22 09/05/23 metformin 1,000 mg tablet 1,000 mg PO BID #90 tabs 03/18/23 09/05/23 omeprazole 20 mg capsule,delayed 20 mg PO DAILY #90 caps 03/18/23 09/05/23 release dulaglutide 3 mg/0.5 mL 3 mg (0.5 mL) subcut QWEEK #2 mL 07/18/23 09/05/23 subcutaneous pen injector Previous Rx's Medication Instructions Recorded blood sugar diagnostic (Contour #100 ea 06/03/21 Next Test Strips) blood-glucose meter (Contour Next #1 ea 06/03/21 Meter) lancets (Accu-Chek Softclix #200 ea 06/03/21 Lancets) rosuvastatin 5 mg tablet 5 mg PO DAILY #90 tab-caps 05/10/22 metformin 1,000 mg tablet 1,000 mg PO BID #90 tabs 03/18/23 omeprazole 20 mg capsule,delayed 20 mg PO DAILY #90 caps 03/18/23 release dulaglutide 3 mg/0.5 mL 3 mg (0.5 mL) subcut QWEEK #2 mL 07/18/23 subcutaneous pen injector Allergies Allergy/AdvReac Type Severity Reaction Status Date / Time Penicillins Allergy Intermediate Other (See Verified 09/05/23 14:27 Comment) General Stated Complaint: Chest/Rib KARRI: 3 Review of Systems All systems reviewed & are unremarkable except as noted in HPI and below Constitutional Constitutional: Denies chills, Denies fever(s) and Denies weakness Cardiovascular Cardiovascular: Denies chest pain and Denies dyspnea Respiratory Respiratory: Denies cough and Denies dyspnea Gastrointestinal Gastrointestinal: Reports abdominal pain, Denies nausea and Denies vomiting Musculoskeletal Musculoskeletal: Denies joint swelling Neurologic Neurologic: Denies weakness Exam Const General: no acute distress Orientation: alert [facility] Head: normal to inspection Ears: external ears normal General nose exam: external nose normal Mouth: moist mucous membranes Eyes General: appearance normal, both eyes and all related structures Neck Neck: normal visual inspection Resp Effort & Inspection: normal respiratory effort and able to speak in complete sentences Cardio Rate: regular rate GI Palpation: soft and tender Skin General skin exam: no rashes or lesions noted Neuro General: patient alert and patient oriented x3 Extrem General: normal to inspection Psych Mental Status: mental status grossly normal Course Vital Signs Vital signs: Vital Signs Temperature 37.1 C 09/05/23 13:03 Pulse 79 09/05/23 13:03 Respiratory Rate 15 09/05/23 13:03 Blood Pressure 202/78 H 09/05/23 13:03 Pulse Oximetry 96 09/05/23 13:03 Temperature 37.1 C 09/05/23 13:03 Temperature Source Tympanic 09/05/23 13:03 Pulse 79 09/05/23 13:03 Respiratory Rate 15 09/05/23 13:03 Respiratory Effort Non-Labored, Short of Breath 09/05/23 13:06 Respiratory Depth Normal 09/05/23 13:06 Respiratory Pattern Normal 09/05/23 13:06 Blood Pressure 202/78 H 09/05/23 13:03 Blood Pressure Position Sitting 09/05/23 13:03 Pulse Oximetry 96 09/05/23 13:03 Oxygen Delivery Method Room Air 09/05/23 13:03 Oxygen Flow Rate 0 09/05/23 13:03 Pain Level 4 09/05/23 13:06 Medical Decision Making 63-year-old male with a history of GERD, lipidemia, diabetes, comes in with left upper quadrant pain. He was seen in the ER over a week ago for left-sided chest and posterior back pain after falling out of bed. Had negative x-rays but told he had a rib contusion. States he continued to have pain in the left upper back but today he sneezed and his pain is now in the left upper quadrant of his abdomen. He denies any vomiting, no chest pain, no difficulty breathing. Urinating and making normal bowel movements per patient. He is alert and oriented on arrival ambulating with normal gait. His abdomen is soft, is tender in the left upper quadrant no guarding. No chest wall tenderness. Suspect musculoskeletal abdominal wall pain but will obtain CBC CMP lipase and CT abdomen pelvis to evaluate for entities such as splenic injury. Patient is stable, CT shows no acute findings. Patient stable for discharge, advised to follow-up with PCP and return precautions given. Has minimal left upper quadrant tenderness with no guarding or rebound. Differential Diagnosis Differential Diagnosis: Musculoskeletal pain, rib contusion Medical Records Medical records reviewed: Yes I reviewed the patient's medical records. Imaging Data Radiologic Study: Attestation: I personally reviewed and interpreted this imaging study as follows: Imaging: CT Scan Radiologist's impression: IMPRESSION: 1. There is abundant fecal material throughout the colon. Correlation with any clinical signs of constipation. No evidence of obvious colitis nor significant diverticular disease in the colon. Appendix appears unremarkable. 2. Normal spleen size in this patient apparently is left upper quadrant pain. No left lung base findings. Lab Data Lab results reviewed: Yes I reviewed the patient's lab results. Quality:SDOH Health Related Social Needs: No Data to Display PFSH All Active Problems (Updated 09/05/23 @ 15:37 by Ravi Hernández MD) Abdominal pain (Acute) Rib contusion (Acute) Polymyalgia (Acute) GERD (gastroesophageal reflux disease) (Chronic) Joint pain (Acute) Acquired trigger finger of both middle fingers (Acute) Dupuytren's contracture (Acute) Trigger finger (Acute) Bursitis of left shoulder (Acute) Tendinitis of long head of biceps brachii of left shoulder (Acute) SLAP lesion of left shoulder (Acute) Traumatic tear of left rotator cuff (Acute ~09/2020) Insomnia (Acute) Anxiety (Chronic) Nocturia (Acute) Low back pain (Acute) DM type 2 (diabetes mellitus, type 2) (Chronic) Hyperlipidemia (Acute) Tubular adenoma of colon (Acute) 2013 Surgical History Colonoscopy - [facility] – [place] 2013 Social History Smoking/Tobacco Use Status: Never Second Hand Exposure: No Smoking risk assessment performed?: Yes Alcohol Intake: former Drug use: Never Caregiver/Support person: No Household members: none Housing: house Communication Needs: None Do you need help understanding health information?: Never Pets and animals: No Sexually active: Yes Do you think of yourself as: straight/heterosexual Current gender identity: male What is your relationship status?: How often do you talk on the phone with friends or family?: three or more times per week How often do you get together with friends or relatives?: three or more times per week How often do you attend restorationism or restorationism services?: 1-3 times per year Do you belong to any clubs or organized social groups?: no Panel score (0-1 are the most socially isolated patients): 1 What type of physical activity do you participate in: walking Duration: 45-60 minutes/day Frequency: daily Trinity/Worship: Hoahaoism Special trinity needs: No Seatbelt use: sometimes Helmet use: Yes Helmet use: always Drive intox or ride w/intox star route mail driver: No
[2023-09-05 13:36] LABS: Bilirubin Negative (Negative); Blood Negative (Negative); Clarity Clear (Clear); Glucose 100 mg/dL (Negative); Ketones Negative (Negative); Leukocyte Esterase Negative (Negative); Nitrite Negative (Negative); Specific Gravity 1.015 (1.005-1.025); Urobilinogen 0.2 mg/dL (Up to 0.2)
[2023-09-05] MEDS: HYDROmorphone 2 MG/ML SYR 1 MG IVP (14:00)
[2023-09-05] MEDS: Normal Saline 1,000 ML 1000 ML IV (14:00)
[2023-09-05 14:03] LABS: Abs Immature Grans 0.04 10^3/uL (0.0-0.06); Absolute Basophil Count 0.06 10^3/uL (0.0-0.2); Absolute Eosinophil Count 0.02 10^3/uL (0.0-0.7); Absolute Lymphocyte Count 1.17 10^3/uL (1.2-3.4); Absolute Monocyte Count 0.61 10^3/uL (0.1-0.8); Absolute Neutrophil Count 6.46 10^3/uL (1.2-6.7); Basophils % 0.7 %; Eosinophils % 0.2 %; HCT 38.8 % (40.0-50.0); HGB 13.3 g/dL (13.5-17.5); Immature Grans % 0.5 %; MCH 30.2 pg (27.0-33.0); MCHC 34.3 % (32.0-36.0); MCV 88 fL (80-95); MPV 8.3 fL (8.0-11.0); Monocytes % 7.3 %; Neutrophils % 77.3 %; Platelet Count 259 10^3/uL (130-400); RBC 4.41 10^6/uL (4.36-5.78); RDW 12.7 % (11.8-14.1); RDW-SD 41.2 fL; WBC 8.36 10^3/uL (4.4-10.8)
[2023-09-05 14:23] LABS: ALT 36 U/L (16-63); AST 19 U/L (15-37); Albumin 4.2 g/dL (3.4-5.0); Alkaline Phosphatase 87 U/L (46-116); Anion Gap 10.8 mmol/L (3-11); BUN 21 mg/dL (7-18); Bilirubin, Total 0.4 mg/dL (0.2-1.0); CO2 25.2 mmol/L (21.0-32.0); CREATININE 0.9 mg/dL (0.70-1.30); Calcium 9.1 mg/dL (8.5-10.1); Chloride 99 mmol/L (98-107); Estimated GFR 97.17 (mL/min/1.73m2); Glucose 119 mg/dL (74-106); Lipase 44 U/L (16-77); Magnesium 1.9 mg/dL (1.8-2.4); Potassium 4.2 mmol/L (3.5-5.1); Sodium 135 mmol/L (136-145)
[2023-09-05 14:32] VITALS: BP 171/71; PULSE 78; RESP 13; O2SAT 97
[2023-09-05] MEDS: Normal Saline - Diluent 50 ML VIAL IJ (14:46)
[2023-09-05] MEDS: Omnipaque 350 MG/ML 500 ML BTL-Imaging package 100 ML IJ (14:47)
[2023-09-05] MEDS: Ketorolac 15 MG/ML VIAL IVP (15:40)
[2023-09-05] MEDS: Lidocaine 5% Patch 1 PATCH TP (15:40)
[2023-09-05 15:46] VITALS: BP 171/71; PULSE 78; RESP 13; O2SAT 97
== END 2023-09-05 15:48 | disposition home or self-care (01) ==
PROVIDERS: Emergency Provider Emergency Medicine; PCP Nurse Practitioner Family
DX: R10.12 Left upper quadrant pain (principal); Z91.81 History of falling
CPT/HCPCS: 36415; 80053; 83690; 96361; 96374; 96375; 99285; 74177; 81003; 83735; 85025; 99283; J1170; J1885